=== PATIENT | female | born 1955 | race Caucasian/White ===

== ENCOUNTER → 2020-12-04 12:28 | Outpatient (CLI) | payer MEDICARE, SELFPAY ==
--- NOTE | ~2020-12-04 | XR_ITS ---
XR chest 2V DATE: 12/04/2020 13:23 INDICATION: Cough TECHNIQUE: PA and lateral views COMPARISON: 09/26/2012 two-view chest FINDINGS: Normal heart size. There is aortic arch calcification and mild thoracic aortic unfolding. No hilar or mediastinal enlargement. The lungs are moderately hyperinflated but clear of infiltrate or consolidation. No pleural effusion or pulmonary mass congestion or pneumothorax. Diffuse osteopenia. Thoracic spinal leads are noted. IMPRESSION: No active cardiopulmonary disease Bilateral moderate hyperinflation of the lungs Osteopenia Reviewed, dictated and finalized at location A.
--- NOTE | ~2020-12-04 | MM_ITS ---
EXAMINATION: MM screening raffi BI w tressa HISTORY: Screening TECHNIQUE: Craniocaudal and mediolateral oblique 3-D tomosynthesis images were obtained and synthetic 2-D images were generated. CAD analysis was submitted and interpreted. COMPARISON: Comparison to multiple prior studies sequentially, with oldest reviewed study dated 01/2014. BREAST PARENCHYMAL COMPOSITION: The breasts are heterogeneously dense, which may obscure small masses . FINDINGS: There is no evidence of suspicious mass, calcification, or architectural distortion to sugg est malignancy in either breast. There has been no suspicious interval change. IMPRESSION: 1. No mammographic evidence of malignancy. 2. Recommend routine screening mammography in one year. BI-RADS Category 1: Negative Reviewed, dictated and finalized at location A.
== END ==
PROVIDERS: PCP Internal Medicine; Visit Provider Internal Medicine
DX: Z12.31 Encounter for screening mammogram for malignant neoplasm of breast (principal); R05 Cough; R91.8 Other nonspecific abnormal finding of lung field; M85.88 Other specified disorders of bone density and structure, other site
CPT/HCPCS: 71046; 77063; 77067

== ENCOUNTER → 2022-03-04 10:42 | Outpatient (CLI) | payer MEDICARE, SELFPAY ==
--- NOTE | ~2022-03-04 | MM_ITS ---
EXAMINATION: MM screening raffi BI w tressa HISTORY: Screening TECHNIQUE: Craniocaudal and mediolateral oblique 3-D tomosynthesis images were obtained and synthetic 2-D images were generated. CAD analysis was submitted and interpreted. COMPARISON: Comparison to multiple prior studies sequentially, with oldest reviewed study dated 08/28. BREAST PARENCHYMAL COMPOSITION: The breasts are extremely dense, which lowers the sensitivity of mamm ography FINDINGS: There is no evidence of suspicious mass, calcification, or architectural distortion to sugg est malignancy in either breast. There has been no suspicious interval change. IMPRESSION: 1. No mammographic evidence of malignancy. 2. Recommend routine screening mammography in one year. BI-RADS Category 1: Negative Reviewed, dictated and finalized at location A.
== END ==
PROVIDERS: PCP Internal Medicine; Visit Provider Internal Medicine
DX: Z12.31 Encounter for screening mammogram for malignant neoplasm of breast (principal)
CPT/HCPCS: 77063; 77067

== ENCOUNTER → 2023-06-05 10:38 | Outpatient (CLI) | payer MEDICARE, SELFPAY ==
--- NOTE | ~2023-06-05 | MM_ITS ---
EXAMINATION: MM screening raffi BI w tressa HISTORY: Screening TECHNIQUE: Craniocaudal and mediolateral oblique 3-D tomosynthesis images were obtained and synthetic 2-D images were generated. CAD analysis was submitted and interpreted. COMPARISON: No prior mammogram is available for comparison at this institution. BREAST PARENCHYMAL COMPOSITION: The breasts are extremely dense, which lowers the sensitivity of mamm ography. FINDINGS: There is no evidence of suspicious mass, calcification, or architectural distortion to sugg est malignancy in either breast. There has been no suspicious interval change. IMPRESSION: 1. No mammographic evidence of malignancy. 2. Recommend routine screening mammography in one year. BI-RADS Category 1: Negative Reviewed, dictated and finalized at location A. PICKER
== END ==
PROVIDERS: PCP Internal Medicine; Visit Provider Internal Medicine
DX: Z12.31 Encounter for screening mammogram for malignant neoplasm of breast (principal)
CPT/HCPCS: 77063; 77067

== ENCOUNTER 2024-04-01 11:01 | Outpatient (CLI) | payer MEDICARE, SELFPAY ==
--- NOTE | ~2024-04-01 | CT_ITS ---
CT Scan of the Chest without Contrast: Clinical Indication: Lung cancer screening, nicotine dependence Technique: Contiguous sections were acquired throughout the chest without intravenous contrast. Dose reduction technique was used on this scan by utilizing automated exposure control and iterative recon struction technique. The dose-length product (DLP) was 72.57 mGy-cm. Findings: There is no evidence of any significant mediastinal, hilar or axillary lymphadenopathy. Coronary saray ry calcifications are present. There is no evidence of pleural or pericardial effusion. Probable minimal tree-in-bud opacities in the upper lobes. A few calcified granulomas are present. Images through the upper abdomen reveal no abnormalities. Impression: Lung RADS 2: Benign appearance. 12 month follow-up screening CT advised. Reviewed, dictated and finalized at location . OVOLTAIC PANEL INSTALLER Impression: Lung RADS 2: Benign appearance. 12 month follow-up screening CT advised.
== END 2024-04-01 11:02 | disposition home or self-care (01) ==
PROVIDERS: PCP Internal Medicine; Visit Provider Internal Medicine
DX: Z12.2 Encounter for screening for malignant neoplasm of respiratory organs (principal); F17.210 Nicotine dependence, cigarettes, uncomplicated
CPT/HCPCS: 71271

== ENCOUNTER 2024-04-08 11:56 | Outpatient (CLI) | payer MEDICARE, SELFPAY ==
--- NOTE | ~2024-04-08 | XR_ITS ---
Clinical Indication: Bronchitis PA and lateral views of the chest: Comparison: 12/04/2020 Findings: The lungs are clear, without evidence of focal consolidation or pleural effusion. Cardiome diastinal silhouette is within normal limits. Bones and soft tissues are unremarkable. Stable neurost imulator device in the spine. Impression: Normal chest. Reviewed, dictated and finalized at location . SLATOR INTERPRETER Impression: Normal chest.
== END 2024-04-08 11:57 | disposition home or self-care (01) ==
LOC: MICIMG 11:57
PROVIDERS: PCP Internal Medicine; Visit Provider Internal Medicine
DX: J40 Bronchitis, not specified as acute or chronic (principal)
CPT/HCPCS: 71046

== ENCOUNTER 2024-08-09 12:00 | Outpatient (CLI) | payer MEDICARE, SELFPAY ==
--- NOTE | ~2024-08-09 | XR_ITS ---
EXAMINATION: XR humerus RT DATE: 08/09/2024 12:11 INDICATION: Right arm pain. TECHNIQUE: 2 views of right humerus were obtained. COMPARISON: Right humerus radiographs 01/05/2015 FINDINGS: Alignment is normal. No fracture. There is moderate osteoarthritis of acromioclavicular johan nt. Glenohumeral joint is normal. Calcified right lung nodules are consistent with old granulomatous disease. IMPRESSION: 1. Moderate osteoarthritis of right acromioclavicular joint. Reviewed, dictated and finalized at location []
== END 2024-08-09 12:01 | disposition home or self-care (01) ==
LOC: MICIMG 12:01
PROVIDERS: PCP Internal Medicine; Visit Provider Internal Medicine
DX: M19.011 Primary osteoarthritis, right shoulder (principal); M81.0 Age-related osteoporosis without current pathological fracture
CPT/HCPCS: 73060

== ENCOUNTER 2024-10-21 14:10 | Outpatient (CLI) | payer MEDICARE, SELFPAY ==
--- NOTE | ~2024-10-21 | DEXA_ITS ---
Bone Density Report Name: CORNELIO BERNARD Age: 69 Sex: Female Ethnicity: White Date of : 1955 Indication: postmenopausal; screening for osteoporosis; Referring Provider: LIVE PARKER Study: Bone densitometry was performed. Exam Date: October 21, 2024 Accession number: [id number] Bone Density: Region BMD T-score Z-score Classification AP Spine(L1, L2) 1.147 1.5 3.5 Normal Femoral Neck (Left) 0.727 -1.1 0.7 Osteopenia Total Hip (Left) 0.849 -0.8 0.7 Normal Femoral Neck (Right) 0.698 -1.4 0.4 Osteopenia Total Hip (Right) 0.852 -0.7 0.8 Normal Total Hip Mean 0.850 -0.8 0.8 Normal World Health Organization criteria for BMD impression classify patients as: Normal (T-score at or above -1.0), Osteopenia (T-score between -1.0 and -2.5), or Osteoporosis (T-score at or below -2.5). 10-year Fracture Risk(1): Major Osteoporotic Fracture 9.5% Hip Fracture 2.0% Reported Risk Factors: [place] (), Neck BMD=0.698, BMI=28.0, smoking (1) FRAX(R) Version 3.08. Fracture probability calculated for an untreated patient. Fracture probability may be lower if the patient has received treatment. Previous Exams: -- Region Exam Age BMD T-score BMD Change BMD Change Date g/cm2 vs Baseline vs Previous -- AP Spine (L1-L2) 10/21/2024 69 1.147 1.5 17.8%* 17.5%* 12/20/2018 63 0.977 0.0 0.3% 3.7%* 01/05/2015 59 0.942 -0.3 -3.3%* -1.1% 12/06/2012 57 0.953 -0.2 -2.2% 3.2%* 11/13/2011 56 0.923 -0.5 -5.3%* 1.1% 09/17/2006 50 0.913 -0.6 -6.3%* -6.3%* 04/16/2004 48 0.974 0.0 Total Hip(Left) 10/21/2024 69 0.849 -0.8 -16.0%* 0.4% 12/20/2018 63 0.845 -0.8 -16.4%* 3.2% 01/05/2015 59 0.819 -1.0 -19.0%* -5.8%* 12/06/2012 57 0.869 -0.6 -14.0%* 2.1% 11/13/2011 56 0.851 -0.7 -15.7%* -2.4% 09/17/2006 50 0.873 -0.6 -13.6%* -13.6%* 04/16/2004 48 1.010 0.6 Total Hip(Right) 10/21/2024 69 0.852 -0.7 -17.0%* 2.0% 12/20/2018 63 0.835 -0.9 -18.7%* 2.4% 01/05/2015 59 0.816 -1.0 -20.5%* -4.5%* 12/06/2012 57 0.854 -0.7 -16.8%* 4.6%* 11/13/2011 56 0.816 -1.0 -20.5%* -12.7%* 09/17/2006 50 0.935 -0.1 -8.9%* -8.9%* 04/16/2004 48 1.027 0.7 -- *Denotes significance at 95% confidence level, LSC for AP Spine = 0.022 g/cm2, LSC for Total Hip = 0.027 g/cm2 Rate of change results reflect vertebral levels common to all scans Clinical Information Provided by Patient: Menopause Age: 32 Impression: The patient has low bone mass, based on the Right Femoral Neck T-score. The patient has an estimated ten-year risk of hip fracture of 2% and an estimated ten-year risk of major fracture of 9.5%, based on the WHO FRAX algorithm. The patient has risk factors, including: smoking. No significant bone loss was observed. Discussion: BONE DENSITY IS LOW AT ONE OR MORE SKELETAL SITES. This patient's lowest T-score is low at one or more skeletal sites. It meets the World Health Organization's (WHO) criteria for ?low bone mass? (T-score between -1.0 and -2.5). The patient's 10-year risk of fracture as calculated by FRAX is less than the threshold where pharmacological therapy is recommended by the National Osteoporosis Foundation (NOF). However, all treatment decisions require clinical judgment and consideration of individual patient factors, including patient preferences, comorbidities, previous drug use, risk factors not captured in the FRAX model (e.g., frailty, falls, vitamin D deficiency, increased bone turnover, interval significant decline in bone density) and possible under or overestimation of fracture risk by FRAX. The patient should follow a healthful lifestyle (good nutrition with adequate calcium and vitamin D, and appropriate weight-bearing exercise). Follow-Up: Consider repeating this study in 2 to 3 years to reassess this patient's status, or sooner if there is some new clinical indication. Reported by: CANDELARIA on 10/21/2024 2:34:00 PM. Reviewed, dictated and finalized at location A.
== END 2024-10-21 14:11 | disposition home or self-care (01) ==
PROVIDERS: PCP Internal Medicine; Visit Provider Internal Medicine
DX: M85.852 Other specified disorders of bone density and structure, left thigh (principal); M85.851 Other specified disorders of bone density and structure, right thigh
CPT/HCPCS: 77080